=== PATIENT | female | born 1955 | race Caucasian/White ===

== ENCOUNTER 2019-01-23 12:22 | Emergency (ER) | payer OTHER ==
[~2019-01-23] VITALS: Ht 162.6 cm; Wt 81.8 kg
[2019-01-23] MEDS ORDERED: CYCL10TA PO (14:15)
[2019-01-23 14:21] VITALS: BP 130/81
== END 2019-01-23 14:23 | disposition home or self-care (01) ==
LOC: M ED 12:22
DX: S16.1XXA Strain of muscle, fascia and tendon at neck level, initial encounter (principal); V49.49XA Driver injured in collision with other motor vehicles in traffic accident, initial encounter; Y92.410 Unspecified street and highway as the place of occurrence of the external cause

== ENCOUNTER → 2019-03-20 | Outpatient (CLI) | payer OTHER ==
[~2019-03-20] MED LIST: CYCL10TA PO
== END ==
LOC: M RAD 15:59
PROVIDERS: ATTEND Registered Nurse Community Health
DX: Z53.9 Procedure and treatment not carried out, unspecified reason (principal); M54.2 Cervicalgia; Z87.828 Personal history of other (healed) physical injury and trauma; S13.4XXD Sprain of ligaments of cervical spine, subsequent encounter; X58.XXXD Exposure to other specified factors, subsequent encounter

== ENCOUNTER → 2019-10-31 | Outpatient (CLI) | payer OTHER ==
--- NOTE | 2019-10-31 20:31 | ECHO ---
DATE OF PROCEDURE: 10/31/2019 REFERRING PHYSICIAN: Dr. Deanne Scott INDICATION: Heart murmur. Height 160 cm, weight 92 kg. DIMENSIONS: IVS: 1.0 LV: 4.6 LVPW: 1.0 LA: 3.7 Aorta: 3.3 RV: 3.0 IVC: 1.3 Mitral E wave velocity: 66 A wave: 81 E prime septal: 5.7 E prime lateral: 8.7 FINDINGS: The study is of fair technical quality. The patient is in sinus rhythm. Left ventricle is normal size and systolic function with estimated LVEF of 60-65%. Right ventricle is also normal size and systolic function. Both atria appear normal. Aortic, mitral, and tricuspid valves appear normal. Pulmonic valve was not well seen. No pericardial effusion is noted. Inferior vena cava is normal size. Aortic root, aortic arch, and visualized segment of abdominal aorta all appear normal. Doppler interrogation reveals competent aortic valve without significant stenosis or insufficiency. There is trace mitral and tricuspid insufficiency. Quality of TR jet was not sufficient to adequately calculate pulmonary artery pressure. Mitral inflow pattern and tissue Doppler imaging of mitral annulus revealed grade 1 diastolic dysfunction. CONCLUSIONS: 1. Study is of fair technical quality. 2. Normal left ventricular (LV) size with preserved LV systolic function and grade 1 diastolic dysfunction. 3. No significant valvular disease. 4. Normal central venous pressure. 5. Unable to estimate pulmonary artery pressure. COMMENT: Subacute bacterial endocarditis (SBE) prophylaxis is not recommended. Relatively normal echocardiogram for patient's age and body habitus.
== END ==
LOC: M CARPUL 08:27
PROVIDERS: ATTEND Obstetrics & Gynecology
DX: R01.1 Cardiac murmur, unspecified (principal)

== ENCOUNTER → 2019-12-23 | Outpatient (CLI) | payer OTHER ==
--- NOTE | 2019-12-23 11:02 | REP ---
BILATERAL DIAGNOSTIC MAMMOGRAM: Comparison mammogram [facility] 11/12/2019, which reported asymmetric opacity 6-o'clock positio right breast and outer left breast. Multiple spot compression views of bilateral breasts performed with additional ML views and tomographic images of the right breast in the MLO and CC projections. There is a moderate degree of scattered fibroglandular tissue with somewhat asymmetric fibroglandular tissue at 6-o'clock position in the right breast. There is no architectural distortion or focal mass bilaterally. No clustered microcalcifications are seen. IMPRESSION: BIRADS 2: BI-RADS/ACR category 2 mammogram. Benign Findings. ACR 2 benign. No persistent nodule or mass, or architectural distortion bilaterally. Mildly asymmetric fibroglandular tissue 6-o'clock position right breast with no suspicious characteristics. Recommend followup mammogram in 1 year. This mammogram was interpreted with the aid of an FDA-approved computer-aided detection system. A. Negative x-ray reports should not delay biopsy if a dominant or clinically suspicious mass is present. B. Four to eight percent of cancers are not identified by x-ray. C. Adenosis and dense breasts may obscure an underlying neoplasm. The patient states she/he had a clinical breast exam in September 2019. The patient letter being requested is M1. Ziyad-David lifetime risk of breast cancer 6.9%. Electronically Signed by Pavan Moreno MD 12/25/2019 11:40 A
== END ==
LOC: M RAD 08:52
PROVIDERS: ATTEND Obstetrics & Gynecology
DX: R92.2 Inconclusive mammogram (principal)

== ENCOUNTER 2020-02-13 11:16 | Day surgery (SDC) | payer OTHER ==
[~2020-02-13] VITALS: Ht 162.6 cm; Wt 92.0 kg
[~2020-02-13 11:16] MED LIST changes: +B-122500 PO; +LIDOCAINE 1% MDV 20ML VIAL SQ PRN; +LR 1,000 ML IV ONE; +VITA30004 PO
[2020-02-13] MEDS ORDERED: dexameTHASONE 4 MG/ML 1ML VIAL (J1100) As Ordered ONE (12:13)
[2020-02-13] MEDS ORDERED: KETOROLAC 60 MG/2 ML VIAL (J1885) As Ordered ONE (12:13)
[2020-02-13] MEDS ORDERED: ONDANSETRON 4MG/2ML VIAL (J2405) As Ordered ONE (12:13)
[2020-02-13] MEDS ORDERED: LIDOCAINE 2% INJ 100 MG/5 ML SDV (FOR ANES.) As Ordered ONE (12:13)
[2020-02-13] MEDS ORDERED: propofoL 200 MG/20 ML VIAL As Ordered ONE (12:13)
[2020-02-13] MEDS ORDERED: MIDAZOLAM INJ 2 MG/2 ML VIAL (J2250) As Ordered ONE (12:16)
[2020-02-13] MEDS ORDERED: fentaNYL 100 MCG/2 ML INJECTION (J3010) As Ordered ONE (12:16)
[2020-02-13] MEDS ORDERED: fentaNYL 100 MCG/2 ML INJECTION (J3010) IV PRN (13:30)
[2020-02-13] MEDS ORDERED: LR 1,000 ML IV SCH (13:30)
[2020-02-13] MEDS ORDERED: oxyCODONE 5MG TAB PO PRN (13:30)
[2020-02-13] MEDS ORDERED: ONDANSETRON 4MG/2ML VIAL (J2405) IV PRN (13:30)
[2020-02-13] MEDS ORDERED: IBUPROFEN 600 MG TAB PO PRN (14:30)
[2020-02-13 14:35] VITALS: BP 142/79
--- NOTE | 2020-02-14 00:19 | RO ---
DATE OF PROCEDURE: 02/13/2020 PREOPERATIVE DIAGNOSIS: Postmenopausal bleeding with abnormal ultrasound. POSTOPERATIVE DIAGNOSIS: Postmenopausal bleeding with abnormal ultrasound with polyps versus fibroids found. PROCEDURE: Dilation and curettage (D and C), hysteroscopy with MyoSure resection of either the polyps or the fibroids; based on the path, we will be able to more clearly discern this. I suspect more than one of each. SURGEON: Deanne Scott MD TELEMEDICINE PHYSICIAN: None. ANESTHESIA: LMA. DESCRIPTION OF PROCEDURE: Denise was brought to the operating room where sufficient LMA anesthesia was induced, and she was prepped, draped and positioned in the usual sterile fashion. She did have a little bit of bleeding just from the prep because she has some atrophic vaginitis as is consistent with her 64 year-old age. After the prep had had adequate time, the bladder was emptied and the anterior aspect of the cervix was grasped with a single-tooth tenaculum and the cervix was then gently dilated in order to allow introduction of the hysteroscope, which was used to picture the endometrial cavity which was full of essentially a bunch of grape sort of cluster of either polyps or fibroid. And then with the MyoSure, we were able to resect these. And as you can see by the final photos, we were able to have an empty endometrial cavity, which was normal to ostia, normal contours once we had it empty, and all of those polyps versus fibroids gone. We did do a final curettage with normal uterine cry noted throughout and then the procedure was ended. Estimated blood loss for the procedure: About 2 mL. Fluid replacement was crystalloid. Complications: None. Condition and Disposition: Denise tolerated the procedure well and was recovering in the recovery room in good condition.
== END 2020-02-13 14:47 | disposition home or self-care (01) ==
LOC: M SDC 11:16
PROVIDERS: ATTEND Obstetrics & Gynecology
DX: C54.1 Malignant neoplasm of endometrium (principal); D64.9 Anemia, unspecified; G43.909 Migraine, unspecified, not intractable, without status migrainosus; Z88.8 Allergy status to other drugs, medicaments and biological substances
CPT/HCPCS: 58558; 88305; J1100; J1885; J2250; J2405; J3010

== ENCOUNTER → 2023-08-30 | Outpatient (CLI) | payer OTHER ==
[~2023-08-30] MED LIST changes: +CYCL-707 PO; -CYCL10TA PO; -LIDOCAINE 1% MDV 20ML VIAL SQ PRN; -LR 1,000 ML IV ONE
== END ==
LOC: M WHC 09:19
PROVIDERS: ATTEND Physician Assistant Medical
DX: Z12.31 Encounter for screening mammogram for malignant neoplasm of breast (principal)

== ENCOUNTER → 2023-08-30 | Outpatient (CLI) | payer OTHER | LOC: M WHC 09:17 | PROVIDERS: ATTEND Nurse Practitioner | DX: Z78.0 Asymptomatic menopausal state (principal); M85.89 Other specified disorders of bone density and structure, multiple sites ==

== ENCOUNTER → 2024-09-05 | Outpatient (CLI) | payer OTHER | LOC: M WHC 08:51 | PROVIDERS: ATTEND Nurse Practitioner | DX: Z12.31 Encounter for screening mammogram for malignant neoplasm of breast (principal) ==